=== PATIENT | male | born 1990 | race Caucasian/White ===

== ENCOUNTER → 2018-05-14 12:06 | Outpatient (CLI) | payer MEDICAID, SELFPAY ==
[2018-05-14 12:50] LABS: Absolute Lymphocyte Count 2.13 X10^3/ul (0.83-4.51); Absolute Neutrophil Count 6.7 X10^3/uL (2.0-7.7); Basophil# 0.02 X10^3/uL; Basophil% 0.2 % (0-1); Eosinophil# 0.35 X10^3/uL; Eosinophils% 3.6 % (0-5); Hematocrit 44.3 % (40-54); Hemoglobin 14.5 g/dl (13.0-16.5); Lymphocyte # 2.13 X10^3/ul (4.0); Lymphocyte % 21.8 % (19-41); Mean Corp Hgb Conc 32.7 g/gl (32-36); Mean Corpuscular Hgb 30.5 pg (27.0-32.0); Mean Corpuscular Volume 93.1 fL (80-94); Mean Platelet Vol. 9.9 fl (6.2-12.0); Monocyte# 0.61 X10^3/uL; Monocyte% 6.2 % (0-10); Neutrophil # 6.65 X10^3/uL (2.7-7.7); Neutrophil % 68.1 % (47-70); Platelet Count 306 K/mm3 (150-450); RBC Distribution Width CV 13.4 % (11.6-14.6); RBC Distribution Width SD 45.8 fl (35.1-43.9); Red Blood Count 4.76 M/mm3 (4.6-6.2); White Blood Count 9.8 K/mm3 (4.4-11.0)
[2018-05-14 12:51] LABS: POSITIVE COUNT NO; POSITIVE DIFFERENTIAL NO; POSITIVE MORPHOLOGY NO
[2018-05-14 13:15] LABS: ALB/GLOB Ratio 1.2 RATIO (0.9-2.4); AST(SGOT) 11 U/L (15-37); Alanine Aminotransfer ALT/SGPT 15 U/L (16-61); Albumin, Serum 3.7 g/dL (3.2-5.0); Alkaline Phosphatase 54 U/L (45-117); Anion Gap 8 (5-15); BUN 13 mg/dL (7-18); Calcium,Total 8.6 mg/dL (8.5-10.1); Chloride 110 mmol/L (98-107); Creatinine, Serum 0.72 mg/dL (0.70-1.30); EST Glomerular Filtration Rate 137 mL/min (>60); Est Glom Filt Rate - Afr Amer 166 mL/min (>60); Globulin 3.1 g/dL (2.2-4.2); Glucose 82 mg/dL (74-106); Potassium 4.4 mmol/L (3.5-5.1); Protein, Total 6.8 g/dL (6.4-8.2); Sodium Level 143 mmol/L (136-145)
== END ==
PROVIDERS: Family Provider Internal Medicine; PCP Internal Medicine; Visit Provider Internal Medicine
DX: L20.9 Atopic dermatitis, unspecified (principal)
CPT/HCPCS: 36415; 80053; 85025

== ENCOUNTER 2019-03-09 18:53 | Emergency (ER) | payer BC, SELFPAY ==
[2019-03-09 18:54] VITALS: BP 148/91; PULSE 89; RESP 16; TEMP 36.6; O2SAT 97; BMI 23.6
--- NOTE | 2019-03-09 19:08 | RAD_ITS ---
STUDY: X-RAY - RIGHT WRIST REASON FOR EXAM: Male, 29 years old. Pain TECHNIQUE: 3 view(s) of the wrist were obtained. COMPARISON: None. FINDINGS: There is no evidence of fracture or dislocation. Chronic osseous body noted at the tip of the ulnar styloid. There are no radiodense foreign bodies. RAD/Wrist min 3 Views IMPRESSION: No fracture or dislocation. Electronically Signed: Parth Tristan, at 19:26 EDT Tel , Service support ,
--- NOTE | 2019-03-09 19:45 | ED.VISSUMM ---
- ER Visit Summary Date of Service: 03/09/19 Chief Complaint: Right wrist injury History of Present Illness: The patient is a 29 M with right wrist injury. Patient states that happened yesterday. He states he is moving his wrist and felt something pop in his wrist. He states that since that time, he has had some increasing pain when he moves his wrist. He was concerned because he has a prior fracture in his wrist. He is right-hand dominant. He denies other injury. He is otherwise been in his normal state of health. Physical Examination: Vital signs reviewed General: Well-nourished, well-developed Head: Normocephalic, atraumatic Eyes: Pupils equal and reactive, extraocular muscles intact Neck, supple, no lymphadenopathy Heart: Regular rate and rhythm Respiratory: No distress, clear bilaterally Abdomen: Soft, nontender, nondistended, no peritoneal signs Back: Nontender Extremities: Nontender, no edema, no cords Skin: Normal color no rash Neuro: Alert and oriented, no focal or lateralizing deficits Test Results: [] Emergency Department Course and Treatment: The patient has normal pulses of his upper extremity. There is no gross laxity. My suspicion is that he likely has a ligamentous sprain. X-rays show no evidence of acute fracture. The patient is placed in a wrist splint for comfort. He will be discharged home Treatment Plan: [] Disposition: Discharge Impression: 1. Right wrist sprain This note was generated with [employer]to[employer] dictation software. It may contain incorrect words, spelling, and punctuation that were not noted in review of the chart prior to signing ED Disposition - Plan for ED Patient: Disposition: Home or Assisted Living Instructions: Wrist Sprain Prescriptions: Naproxen [Naprosyn] 500 mg PO BID #14 tab Prescription Printed Referrals: Lakshmi Lama MD [Primary Care Provider] - Rob Palomo MD [STAFF PHYSICIAN] -
== END 2019-03-09 19:51 | disposition home or self-care (01) ==
PROVIDERS: Emergency Provider Emergency Medicine; Family Provider Internal Medicine; PCP Internal Medicine
DX: S63.501A Unspecified sprain of right wrist, initial encounter (principal); X58.XXXA Exposure to other specified factors, initial encounter; Y93.9 Activity, unspecified; Y92.89 Other specified places as the place of occurrence of the external cause; Y99.0 Civilian activity done for income or pay; Z72.0 Tobacco use
CPT/HCPCS: 73110; 99283

== ENCOUNTER → 2021-01-02 10:18 | Outpatient (CLI) | payer BC, SELFPAY ==
[2021-01-02 09:44] VITALS: BMI 22.4
[2021-01-02 12:47] LABS: Absolute Lymphocyte Count 1.41 X10^3/uL (0.83-4.51); Absolute Neutrophil Count 8.9 X10^3/uL (2.0-7.7); Basophil# 0.03 X10^3/uL; Basophil% 0.3 % (0-1); Eosinophil# 0.25 X10^3/uL; Eosinophils% 2.2 % (0-5); Hematocrit 47.3 % (40-54); Hemoglobin 15.8 g/dL (13.0-16.5); Lymphocyte # 1.41 X10^3/ul (0.83-4.51); Lymphocyte % 12.2 % (19-41); Mean Corp Hgb Conc 33.4 g/dL (32-36); Mean Corpuscular Hgb 31.8 pg (27.0-32.0); Mean Corpuscular Volume 95.2 fL (80-94); Mean Platelet Vol. 9.7 fl (6.2-12.0); Monocyte# 0.91 X10^3/uL; Monocyte% 7.9 % (0-10); NRBC Flagged by Analyzer 0 % (0-5); Neutrophil # 8.88 X10^3/uL (2.7-7.7); Platelet Count 350 K/mm3 (150-450); RBC Distribution Width CV 12.1 % (11.6-14.6); RBC Distribution Width SD 42.3 fl (35.1-43.9); Red Blood Count 4.97 M/mm3 (4.6-6.2); White Blood Count 11.5 K/mm3 (4.4-11.0)
[2021-01-02 13:18] LABS: AST(SGOT) 22 U/L (15-37); Alanine Aminotransfer ALT/SGPT 27 U/L (16-61); Albumin, Serum 3.7 g/dL (3.2-5.0); Alkaline Phosphatase 86 U/L (45-117); Anion Gap 6 (5-15); BUN 10 mg/dL (7-18); BUN/Creat Ratio 12.9 RATIO (10-20); Chloride 102 mmol/L (98-107); Cholesterol 176 mg/dL (200); Creatinine, Serum 0.78 mg/dL (0.70-1.30); EST Glomerular Filtration Rate 124 mL/min (>60); Est Glom Filt Rate - Afr Amer 150 mL/min (>60); Globulin 3.6 g/dL (2.2-4.2); Glucose 102 mg/dL (74-106); High Density Lipoprotein 51 mg/dL; Protein, Total 7.3 g/dL (6.4-8.2); Sodium Level 136 mmol/L (136-145); Triglycerides 117 mg/dL; Very Low Density Lipoprotein 23 mg/dL (5-40)
== END ==
PROVIDERS: PCP Internal Medicine; Referring Provider Physician Assistant; Visit Provider Physician Assistant
DX: Z00.00 Encounter for general adult medical examination without abnormal findings (principal)
CPT/HCPCS: 36415; 80053; 80061; 85025

== ENCOUNTER 2021-06-30 18:16 | Emergency (ER) | payer BC, SELFPAY ==
[2021-06-30 18:17] VITALS: BP 141/91; PULSE 113; RESP 18; TEMP 36.1; O2SAT 97; BMI 22.1
[2021-06-30 18:19] VITALS: BP 141/91; PULSE 113; RESP 18; TEMP 36.1; O2SAT 97
--- NOTE | 2021-06-30 18:28 | RAD_ITS ---
STUDY: X-RAY - RIGHT WRIST REASON FOR EXAM: Male, 31 years old. Laceration TECHNIQUE: 3 view(s) of the wrist were obtained. COMPARISON: 23 June 2012 FINDINGS: The bones of the wrist are intact and located. Mineralization is normal. There is gas outlining a linear laceration of the ventral distal forearm. RAD/Wrist min 3 Views IMPRESSION: 1. No acute osseous injury. Electronically Signed: Colin Nathan MD at 19:12 EDT Tel , Service support ,
--- NOTE | 2021-06-30 20:08 | EX.ED.UPPERE ---
HPI History of Present Illness Chief Complaint: Laceration Detail of Chief Complaint: Laceration to right wrist Informant: patient Narrative Narrative: Patient presents to the emergency department complaint of a laceration to his right wrist that he incurred prior to arrival in the emergency department. Patient states that he was trying to move a television and he accidentally put his hand through the glass of the TV stand. Patient is right-hand dominant. He is unsure of his last tetanus. Patient denies this being a self-inflicted wound or any history of depression or suicidal ideation. [facility] Medical History (Updated 06/30/21 @ 20:[address] Eduardo Magaña, DO) Dermatitis Effusion of elbow joint, right Plantar warts Home Medications ketoconazole 2 %-hydrocortisone 2.5 % topical cream 1 applic TOPICAL BID #30 g 05/02/21 [Rx Last Taken Unknown] Depo-Medrol 40 mg/mL suspension for injection 40 mg INTRA-ARTICULAR ONCE #1 ml NS 05/03/21 [Clinic Last Taken Unknown] cephalexin 500 mg PO Q6 #40 capsule 06/30/21 [Rx Last Taken Unknown] Allergy/AdvReac Type Severity Reaction Status Date / Time No Known Allergies Allergy Verified 05/02/21 10:47 Family History Father Alcoholism Mother Cancer cervical Seizures Sister Cancer cervical Thyroid disorder Grandfather Heart disease CVA (cerebral vascular accident) Surgical History History of appendectomy Social History Smoking Status: Current every day smoker tobacco type: cigarettes Tobacco: How many years used: 10 alcohol intake: current alcohol intake frequency: a few times a month substance use type: does not use what type of physical activity do you participate in: none ROS ROS ED Constitutional Constitutional ED: Reports systems reviewed and no addt'l complaints, except as documented; Denies body ache(s), change in weight or chills Eyes Eyes: Denies acute decrease in peripheral vision, change in vision, double vision or loss of vision ENT ENT ED: Reports none; Denies ear pain, lip swelling, loss taste/smell, neck pain, otalgia or sore throat Cardiovascular Cardiovascular: Reports none; Denies abdominal pain, chest pain with activity, leg edema, lightheadedness, palpitations, rapid heart rate or syncope Respiratory/Chest Respiratory/Chest: Reports none; Denies change in mental status, dry cough, dyspnea, hemoptysis, shortness of breath at rest or shortness of breath with exertion Gastrointestinal Gastrointestinal: Reports none; Denies abdominal pain, change in stool character, diarrhea, hematemesis, hematochezia, melena, rectal bleeding or vomiting Genitourinary Genitourinary ED: Reports none; Denies abdominal discomfort, anuria, dysuria, genital pain or polyuria Musculoskeletal Musculoskeletal: Reports none and other Details: Laceration right wrist ; Denies arthralgias, back pain, difficulty walking, extremity pain, muscle weakness or myalgias Integumentary Reports none; Denies abscess or rash Neurologic Neurologic: Reports none; Denies abnormal gait, confusion, focal weakness, frequent falls, headache(s), loss of vision, numbness, paresthesias, radicular pain, vertigo or weakness Psychiatric Psychiatric: Reports systems reviewed and no addt'l complaints, except as documented and none; Denies behavioral changes, confusion, difficulty concentrating, hallucinations, suicidal ideation, tactile hallucinations or visual hallucinations Endocrine Endocrinology: Denies none, cold intolerance, excessive sweating, fatigue or heat intolerance Hematologic/Lymphatic Hematologic/Lymphatic: Reports none; Denies anemia, easy bleeding or easy bruising Allergic/Immunologic Allergic/Immunologic ED: Denies as per HPI, none, lip swelling, mouth swelling, throat swelling, tongue swelling or hives EXAM Physical Exam Const Vital Signs: 06/30/21 18:17 06/30/21 18:19 Temperature 96.9 F L 96.9 F L Temperature Source Temporal Temporal Pulse Rate 113 H 113 H Respiratory Rate 18 18 Blood Pressure 141/91 H 141/91 H Blood Pressure Mean 107 107 Pulse Ox 97 97 Oxygen Delivery Method Room Air Room Air Positive well nourished and well developed General Appearance ED: well developed and NAD HEENT Reports TM's clear and moist mucous membranes normocephalic and atraumatic; Negative for trauma or tenderness Tympanic Membrane ED: Yes TM's clear Eyes PERRL and EOMs intact bilaterally General Eye ED: Negative for pale conjunctiva or scleral icterus Neck no lymphadenopathy, supple and no JVD General: Negative for tenderness Chest Wall inspection of chest normal and palpation of chest normal Chest: Negative for tenderness Resp normal respiratory effort and clear to auscultation bilaterally Effort and Inspection: Negative for respiratory distress or pain with movement Auscultation: Negative for rhonchi, wheezes or diminished lung sounds Cardio regular rate, regular rhythm, S1 normal heart sound, S2 normal heart sound and no murmurs Peripheral Pulses: pulses 2+ throughout GI normal to inspection, nondistended, normoactive bowel sounds, soft to palpation, non-tender, non-distended and no masses Back/Spine no CVA tenderness and no thoracic nor lumbar tenderness Extremity normal to inspection General Extremety ED: Negative for edema General Extremity: Negative for edema Neuro oriented x3, CN's II-XII intact bilaterally, no sensory deficits noted and gait normal Sensorium / Orientation: awake, alert, oriented to person, oriented to place and oriented to time Motor Exam: strength 5/5 throughout and strength abnormal Psych mental status grossly normal Skin no rashes or lesions noted and no wounds Skin Narrative: Patient has a 4.5 cm laceration over the volar aspect of the right wrist from the midportion of the wrist over along the radial aspect. Patient has normal distal pulses of the ulnar artery as well as the radial artery. He has normal range of motion of flexion extension of all his digits. He is neurovascular intact. MDM MDM MDM Narrative Medical decision making narrative: X-rays of the right wrist obtained showed no evidence of foreign body or glass within the wound. Patient advised to follow-up with his primary care physician in 10 days for suture removal. Patient to return if increasing pain, redness, swelling, purulent drainage, or condition worsen anyway. Patient will be started on Keflex. Radiography Diagnostic Testing: Clinical Impression(s) from Imaging Studies Wrist X-Ray 06/30/21 18:28 IMPRESSION: 1. No acute osseous injury. Electronically Signed: Colin Nathan MD at 19:12 EDT Tel , Service support , Procedures Lacerations Wrist laceration: Length: 1.77 in Depth: Sub Q Shape: Linear Prep: Sterile Conditions Laceration repair: Lidocaine and Local Irrigated (ml): 200 Number of Sutures/Karen: 9 Suture Information: Ethilon and Simple Comment: The wound was inspected and was noted that he did not lacerate any tendons I am able to see flexor tendon but appears to be intact through flexion extension of his digits. No arterial bleeding noted. Discharge Plan Triage Chief Complaint: Laceration ED Provider: Eduardo Magaña Dx/Rx/DC Orders Clinical Impression: Laceration of wrist, right Instructions: ED Laceration: All Closures Prescriptions: New cephalexin [cephalexin] 500 MG capsule 500 mg PO Q6 Qty: 40 RF: 0 No Action ketoconazole-hydrocortisone 2-2.5 % cream 1 applic topical BID Qty: 30 RF: 2 methylprednisolone acetate [Depo-Medrol] 40 mg/mL suspension 40 mg intra-articular ONCE Qty: 1 RF: 0 Primary Care Provider: Lakshmi Lama Referrals: Lakshmi Lama MD [Primary Care Provider] - 10 Day for suture removal Disposition Disposition: Home, Self Care
[2021-06-30] MEDS: Cephalexin 250 MG Capsule 500 MG PO (20:18)
[2021-06-30] MEDS: Diphth,Pertuss(Acell),Tet Vac 0.5 ML Vial IM (20:18)
[2021-06-30 20:21] VITALS: RESP 16
[2021-06-30] MEDS: Lidocaine 1% (20 ml mdv) 20 ML Vial 10 ML INFILT (20:21)
== END 2021-06-30 20:36 | disposition home or self-care (01) ==
PROVIDERS: Emergency Provider Emergency Medicine; PCP Internal Medicine
DX: S61.511A Laceration without foreign body of right wrist, initial encounter (principal); W25.XXXA Contact with sharp glass, initial encounter; Y93.89 Activity, other specified; Y92.89 Other specified places as the place of occurrence of the external cause; Y99.8 Other external cause status; F17.210 Nicotine dependence, cigarettes, uncomplicated; Z23 Encounter for immunization
CPT/HCPCS: 12001; 73110; 90471; 90715; 99284

== ENCOUNTER 2021-07-30 05:10 | Emergency (ER) | payer BC, SELFPAY ==
[2021-07-30 05:11] VITALS: BP 153/104; PULSE 76; RESP 18; TEMP 35.8; O2SAT 100; BMI 23.3
--- NOTE | 2021-07-30 05:27 | CT_ITS ---
STUDY: CT ABDOMEN AND PELVIS WITHOUT CONTRAST REASON FOR EXAM: Male, 31 years old. Left flank pain RADIATION DOSAGE (If Supplied By Facility): CTDIvol = ( 6.04 ) mGy, DLP = ( 306.55 ) mGycm TECHNIQUE: Transaxial images were obtained from the dome of the diaphragm to the symphysis pubis without oral contrast, and without intravenous contrast. Sagittal and coronal images were reconstructed. Individualized dose optimization techniques were used for this CT. COMPARISON: 04/12/2017 FINDINGS: The visualized lung bases are unremarkable. The visualized portions of the heart are within normal limits. Normal liver. Normal gallbladder and extrahepatic biliary system. Normal spleen. Normal pancreas. Normal bilateral adrenal glands. Normal right kidney. Normal left kidney. There is a 4 mm left distal ureter calculus with mild ureter wall thickening. No left hydroureteronephrosis. Multiple punctate bilateral renal collecting system calculi. Normal visualized stomach. Normal small intestine. Normal colon. There are surgical clips in the region of the appendix consistent with a prior appendectomy. Normal abdominal aorta. Normal inferior vena cava. Normal retroperitoneum. Normal urinary bladder. Normal visualized prostate gland. Normal abdominal wall. Normal thoracolumbar vertebral alignment. CT/Abdomen/Pelvis without Cont IMPRESSION: Nonobstructive left distal ureter calculus with mild ureter wall thickening. Electronically Signed: Cb Moore MD at 6:26 EST Tel , Service support ,
--- NOTE | 2021-07-30 05:29 | EX.ED.DYSGE1 ---
HPI History of Present Illness Chief Complaint: Flank Pain Narrative Narrative: Patient is a 31-year-old male who states he went to bed last night normally and then awoke around 430/5 AM with left-sided flank pain. He states the pain is sharp and stabbing in nature. He denies any recent trauma or excessive activity. He denies any hematuria or dysuria. He states that with the persistent sharp pain he was concern for a possible kidney stone as the cause of his symptoms and therefore comes in for evaluation [facility] Medical History Dermatitis Effusion of elbow joint, right Plantar warts Medical History no medical history Home Medications ibuprofen 600 mg PO Q6H PRN #30 tab 07/30/21 [Rx Last Taken Unknown] ondansetron 4 mg PO Q8H PRN #21 tab 07/30/21 [Rx Last Taken Unknown] oxycodone-acetaminophen [Percocet] 1 tab PO Q6H PRN 3 Days #12 tab 07/30/21 [Rx Last Taken Unknown] tamsulosin [Flomax] 0.4 mg PO DAILY #14 cap 07/30/21 [Rx Last Taken Unknown] Allergy/AdvReac Type Severity Reaction Status Date / Time No Known Allergies Allergy Verified 07/12/21 08:27 Family History Father Alcoholism Mother Cancer cervical Seizures Sister Cancer cervical Thyroid disorder Grandfather Heart disease CVA (cerebral vascular accident) Surgical History History of appendectomy Social History Smoking Status: Current every day smoker tobacco type: cigarettes Tobacco: How many years used: 10 alcohol intake: current alcohol intake frequency: a few times a month substance use type: does not use what type of physical activity do you participate in: none ROS ROS ED Constitutional Constitutional ED: Denies chills or fever(s) ENT ENT ED: Denies sore throat Cardiovascular Cardiovascular: Denies chest pain Respiratory/Chest Respiratory/Chest: Denies cough or dyspnea Gastrointestinal Gastrointestinal: Reports abdominal pain; Denies diarrhea, nausea or vomiting Genitourinary Genitourinary ED: Denies dysuria or hematuria Musculoskeletal Musculoskeletal: Reports back pain; Denies myalgias Integumentary Denies rash Neurologic Neurologic: Denies headache(s) Hematologic/Lymphatic Hematologic/Lymphatic: Denies easy bleeding or easy bruising EXAM Physical Exam Const Vital Signs: 07/30/21 05:11 Temperature 96.5 F L Temperature Source Oral Pulse Rate 76 Respiratory Rate 18 Blood Pressure 153/104 H Blood Pressure Mean 120 Pulse Ox 100 Oxygen Delivery Method Room Air Positive well nourished and well developed General Appearance ED: well developed Eyes PERRL and EOMs intact bilaterally Neck supple Resp normal respiratory effort and clear to auscultation bilaterally Cardio regular rate and regular rhythm Rate: other Other Details: Radial pulses are +2-4 bilaterally are equal and symmetric GI non-distended GI Narrative: Abdomen is soft and nondistended with normoactive bowel sounds. There is pain with palpation in the left upper and mid abdomen without voluntary guarding or rigidity. No pulsatile mass Auscultation: normoactive bowel sounds Palpation: soft Back/Spine Back/Spine Narrative: Positive left CVA pain Extremity normal to inspection Neuro oriented x3 and CN's II-XII intact bilaterally Sensorium / Orientation: alert Motor Exam: strength 5/5 throughout Psych mental status grossly normal Skin no rashes or lesions noted Skin Narrative: No secondary changes to suggest trauma or infection MDM MDM MDM Narrative Medical decision making narrative: Patient's exam and history is most consistent with kidney stone therefore basic labs and a noncontrast CT were obtained. Labs reveal no leukocytosis or left shift and normal kidney function. After Toradol and morphine as well as IV hydration patient reported improvement of his pain. CT scan did confirm a 4 mm left ureteral stone. However there is no obvious obstructive process and labs go against acute kidney injury. Therefore this time patient's pain is controlled he does not have SHANAE changes and therefore safe for discharge with urology follow-up Lab Data Attestation: I reviewed the patient's lab results. Labs: Laboratory Results - last 24 hr 07/30/21 07/30/21 05:10 05:10 WBC 10.5 RBC 4.99 Hgb 15.8 Hct 47.4 MCV 95.0 H MCH 31.7 MCHC 33.3 RDW Std Deviation 43.4 RDW Coeff of Annalisa 12.4 Plt Count 361 MPV 9.5 Immature Gran % (Auto) 0.400 Neut % (Auto) 60.9 Lymph % (Auto) 25.1 Anderson % (Auto) 9.7 Eos % (Auto) 3.4 Baso % (Auto) 0.5 Absolute Neuts (auto) 6.4 Absolute Lymphs (auto) 2.64 Nucleated RBC % 0 Sodium 138 Potassium 4.1 Chloride 105 Carbon Dioxide 29.0 Anion Gap 4 L BUN 10 Creatinine 0.86 Estim Creat Clear Calc 124.46 Est GFR (MDRD) Af Amer 134 Est GFR (MDRD) Non-Af 111 BUN/Creatinine Ratio 11.7 Glucose 123 H Calcium 8.4 L Radiography Diagnostic Testing: Clinical Impression(s) from Imaging Studies Abdomen/Pelvis CT 07/30/21 05:27 IMPRESSION: Nonobstructive left distal ureter calculus with mild ureter wall thickening. Electronically Signed: Cb Moore MD at 6:26 EST Tel , Service support , Discharge Plan Triage Chief Complaint: Flank Pain ED Provider: Alin Fontenot Dx/Rx/DC Orders Clinical Impression: Kidney stone on left side, Renal colic Instructions: ED Kidney Stone w/ Colic Prescriptions: New tamsulosin [Flomax] 0.4 mg capsule 0.4 mg PO DAILY Qty: 14 RF: 0 ondansetron 4 mg tablet,disintegrating 4 mg PO Q8H PRN (Reason: nausea and vomiting) Qty: 21 RF: 0 ibuprofen 600 mg tablet 600 mg PO Q6H PRN (Reason: pain) Qty: 30 RF: 0 oxycodone-acetaminophen [Percocet] 5-325 mg tablet 1 tab PO Q6H PRN (Reason: pain) 3 Days Qty: 12 RF: 0 Primary Care Provider: Lakshmi Lama Referrals: Lakshmi Lama MD [Primary Care Provider] - Marek Mobley MD [STAFF PHYSICIAN] - 3-5 Days if not improving Activity Restrictions/Additional Instructions: Please return to the hospital/ER if you develop a fever over 100.4 or your pain is not controlled with outpatient medications Disposition Disposition: Home, Self Care
[2021-07-30 05:34] LABS: Absolute Lymphocyte Count 2.64 X10^3/uL (0.83-4.51); Absolute Neutrophil Count 6.4 X10^3/uL (2.0-7.7); Basophil# 0.05 X10^3/uL; Basophil% 0.5 % (0-1); Eosinophil# 0.36 X10^3/uL; Eosinophils% 3.4 % (0-5); Hematocrit 47.4 % (40-54); Hemoglobin 15.8 g/dL (13.0-16.5); Lymphocyte # 2.64 X10^3/ul (0.83-4.51); Lymphocyte % 25.1 % (19-41); Mean Corp Hgb Conc 33.3 g/dL (32-36); Mean Corpuscular Hgb 31.7 pg (27.0-32.0); Mean Platelet Vol. 9.5 fl (6.2-12.0); Monocyte# 1.02 X10^3/uL; Monocyte% 9.7 % (0-10); NRBC Flagged by Analyzer 0 % (0-5); Neutrophil # 6.42 X10^3/uL (2.7-7.7); Neutrophil % 60.9 % (47-70); Platelet Count 361 K/mm3 (150-450); RBC Distribution Width CV 12.4 % (11.6-14.6); RBC Distribution Width SD 43.4 fl (35.1-43.9); Red Blood Count 4.99 M/mm3 (4.6-6.2); White Blood Count 10.5 K/mm3 (4.4-11.0)
[2021-07-30] MEDS: 0.9% Normal Saline 1,000 ML 999 ML IV (05:35)
[2021-07-30] MEDS: Ketorolac 30 MG/ML Syringe IV (05:36)
[2021-07-30 05:47] LABS: Anion Gap 4 (5-15); BUN 10 mg/dL (7-18); BUN/Creat Ratio 11.7 RATIO (10-20); Calcium,Total 8.4 mg/dL (8.5-10.1); Chloride 105 mmol/L (98-107); Creatinine, Serum 0.86 mg/dL (0.70-1.30); EST Glomerular Filtration Rate 111 mL/min (>60); Est Glom Filt Rate - Afr Amer 134 mL/min (>60); Estimated Creatinine Clearance 124.46 ml/min; Glucose 123 mg/dL (74-106); Potassium 4.1 mmol/L (3.5-5.1); Sodium Level 138 mmol/L (136-145)
[2021-07-30] MEDS: Morphine 4 MG/ML Syringe IV (06:23)
[2021-07-30] MEDS: Ondansetron 4 MG/2 ML Vial IV (06:23)
[2021-07-30] MEDS: oxyCODONE 5 MG Tablet 10 MG PO (06:47)
[2021-07-30 06:51] VITALS: RESP 16
== END 2021-07-30 06:51 | disposition home or self-care (01) ==
PROVIDERS: Emergency Provider Emergency Medicine; PCP Internal Medicine
DX: N20.2 Calculus of kidney with calculus of ureter (principal); F17.210 Nicotine dependence, cigarettes, uncomplicated
CPT/HCPCS: 74176; 80048; 85025; 96361; 96374; 96375; 99283; J7030; A4216; J2405

== ENCOUNTER 2021-08-07 08:38 | Emergency (ER) | payer BC, SELFPAY ==
[2021-08-07 08:38] VITALS: BP 160/113; PULSE 96; RESP 19; TEMP 36.4; O2SAT 100; BMI 22.7
--- NOTE | 2021-08-07 09:03 | EDS_ITS ---
HPI HPI - GI History of Present Illness Chief Complaint: Flank Pain Informant: patient Abdominal Pain/Flank Pain Onset: Today Context: Sudden Onset Timing: Continuous and Waxes and wanes Quality: Aching Location: Left Flank Current Severity: Severe Maximum Severity: Severe Worsened by: Nothing Relieved by: Nothing Nausea/Vomiting/Emesis GI Symptom: Positive for Nausea and Vomiting Quality: Positive for Nonbilious; Negative for Blood streaks Diarrhea/Melena/Hematochezia GI Symptom: Negative for Diarrhea, Melena and Hematochezia Associated Symptoms Associated Symptoms: Positive for Urgency; Negative for Dysuria, Frequency and Hematuria Narrative Narrative: Patient presenting with acute onset about an hour ago of left flank pain similar to when he was seen here last week for similar symptoms and diagnosed with a kidney stone via CT. He did not pass anything that he knows of yet. He has never required any surgeries. Healthy otherwise was feeling fine prior to the onset of pain today, no recent injuries. Feels like he needs to urinate, and feels like it is difficult to get it out but he is urinating without hematuria. Prior similar symptoms: Yes PFSH PFSH Medical History Dermatitis Effusion of elbow joint, right Plantar warts Home Medications ibuprofen 600 mg PO Q6H PRN #30 tab 07/30/21 [Rx Last Taken Unknown] ondansetron 4 mg PO Q8H PRN #21 tab 07/30/21 [Rx Last Taken Unknown] oxycodone-acetaminophen [Percocet] 1 tab PO Q6H PRN 3 Days #12 tab 07/30/21 [Rx Last Taken Unknown] tamsulosin [Flomax] 0.4 mg PO DAILY #14 cap 07/30/21 [Rx Last Taken Unknown] oxycodone-acetaminophen 1 tab PO Q6H PRN PRN 3 Days #12 tablet 08/07/21 [Rx Last Taken Unknown] Allergy/AdvReac Type Severity Reaction Status Date / Time No Known Allergies Allergy Verified 08/07/21 08:40 Family History Father Alcoholism Mother Cancer cervical Seizures Sister Cancer cervical Thyroid disorder Grandfather Heart disease CVA (cerebral vascular accident) Surgical History History of appendectomy Social History Smoking Status: Current every day smoker tobacco type: cigarettes Tobacco: How many years used: 10 alcohol intake: current alcohol intake frequency: a few times a month substance use type: does not use what type of physical activity do you participate in: none ROS ROS ED Constitutional Constitutional ED: Denies chills or fever(s) Eyes Eyes: Denies change in vision or diplopia ENT ENT ED: Denies rhinorrhea or sore throat Cardiovascular Cardiovascular: Denies chest pain or palpitations Respiratory/Chest Respiratory/Chest: Denies cough or dyspnea Gastrointestinal Gastrointestinal: Reports as per HPI, abdominal pain, nausea and vomiting; Denies diarrhea Genitourinary Genitourinary ED: Reports as per HPI and flank pain; Denies dysuria or hematuria Musculoskeletal Musculoskeletal: Reports back pain; Denies neck pain Integumentary Denies abscess or rash Neurologic Neurologic: Denies headache(s), paresthesias or weakness Psychiatric Psychiatric: Denies anxiety or suicidal thoughts EXAM Physical Exam Const Vital Signs: 08/07/21 08:38 Temperature 97.5 F L Temperature Source Temporal Pulse Rate 96 Respiratory Rate 19 H Blood Pressure 160/113 H Blood Pressure Mean 128 Pulse Ox 100 Oxygen Delivery Method Room Air Positive well nourished and well developed Constitutional Narrative: Uncomfortable in painful distress General Appearance ED: well developed HEENT Reports moist mucous membranes normocephalic and atraumatic Eyes PERRL and EOMs intact bilaterally Neck full ROM and supple Resp normal respiratory effort and clear to auscultation bilaterally Cardio regular rate, regular rhythm and no murmurs GI non-distended GI Narrative: Mildly tender left upper quadrant/flank Auscultation: normoactive bowel sounds Palpation: soft Back/Spine General Back: CVA tenderness left and other FROM Extremity normal to inspection General Extremety ED: Negative for edema, pulses abnormal or tenderness General Extremity: Negative for edema or pulses abnormal Neuro oriented x3, CN's II-XII intact bilaterally and no sensory deficits noted Sensorium / Orientation: awake and alert Motor Exam: strength 5/5 throughout Skin no rashes or lesions noted and no wounds MDM MDM MDM Narrative Medical decision making narrative: Urinalysis does not show infection. His symptoms are well controlled after morphine, Toradol, Zofran all given IV. His CT scan from this past week shows proximal ureteral 4 mm stone that was nonobstructing at the time, that is probably the offending stone here, expectant management is indicated discussed with patient he is comfortable with that plan. We will give him a short prescription for some Percocet since those are gone from last week, he is advised he can still take ibuprofen and Zofran with it in addition to the Flomax if he wishes, unknown if this is a UVJ stone or not, but not likely to harm him. Refer to urology if he goes 4 or 5 weeks without being able to pass the stone. Given strainers to use at home in the meantime. Lab Data Attestation: I reviewed the patient's lab results. Labs: Laboratory Results - last 24 hr 08/07/21 10:02 Urine Color Yellow Urine Clarity Sl. Cloudy Urine pH 6.0 Ur Specific [place] 1.015 Urine Protein 15 H Urine Glucose (UA) Normal Urine Ketones 5 H Urine Occult Blood 150 H Urine Nitrite Negative Urine Bilirubin Negative Urine Urobilinogen Normal Ur Leukocyte Esterase 25 H Urine RBC 5-10 SEEN Urine WBC 0-5 SEEN Ur Squamous Epith Cells 0-5 SEEN Urine Bacteria RARE Urine Mucus 0 SEEN Discharge Plan Triage Chief Complaint: Flank Pain ED Provider: Shukri Wood Dx/Rx/DC Orders Clinical Impression: Renal colic on left side, Ureterolithiasis Instructions: ED Kidney Stone w/ Colic Prescriptions: New oxycodone-acetaminophen [oxycodone-acetaminophen] 1 TABLET tablet 1 tab PO Q6H PRN PRN (Reason: Pain) 3 Days Qty: 12 RF: 0 No Action tamsulosin [Flomax] 0.4 mg capsule 0.4 mg PO DAILY Qty: 14 RF: 0 ondansetron 4 mg tablet,disintegrating 4 mg PO Q8H PRN (Reason: nausea and vomiting) Qty: 21 RF: 0 ibuprofen 600 mg tablet 600 mg PO Q6H PRN (Reason: pain) Qty: 30 RF: 0 oxycodone-acetaminophen [Percocet] 5-325 mg tablet 1 tab PO Q6H PRN (Reason: pain) 3 Days Qty: 12 RF: 0 Primary Care Provider: Lakshmi Lama Referrals: Lakshmi Lama MD [Primary Care Provider] - Marek Mobley MD [STAFF PHYSICIAN] - (4-5 weeks if unable to pass the stone by then and still having pain) Disposition Disposition: Home, Self Care
[2021-08-07] MEDS: Ketorolac 30 MG/ML Syringe IV (09:15)
[2021-08-07] MEDS: Morphine 4 MG/ML Syringe IV (09:15)
[2021-08-07] MEDS: Ondansetron 4 MG/2 ML Vial IV (09:15)
[2021-08-07 10:21] LABS: Mucous, Urine 0 SEEN /hpf (<or=2+)
[2021-08-07 10:29] LABS: Color, Urine Yellow (Yellow); Glucose, Dipstick Normal (Normal); Ketone-Dipstick 5 mg/dl (Negative); Leukocyte Esterase-Dipstick 25 /ul (Negative); Nitrite-Dipstick Negative (Negative); Occult Blood-Urine 150 /ul (Negative); Protein-Dipstick 15 mg/dl (Negative); Specific Gravity, Urine 1.015 (1.002-1.030); Urine Bilirubin Dipstick Negative (Negative); Urine Clarity Sl. Cloudy (Clear); Urine Urobilinogen Normal (Normal)
[2021-08-07 10:35] LABS: Bacteria RARE /hpf (None Seen); Red Blood Cells-Urine 5-10 SEEN /hpf (0-5); Squamous Epithelial Cells - UA 0-5 SEEN /hpf (0-5); White Blood Cells 0-5 SEEN /hpf (0-5)
[2021-08-07 11:02] VITALS: BP 127/86; PULSE 89; RESP 16; O2SAT 97
== END 2021-08-07 11:07 | disposition home or self-care (01) ==
PROVIDERS: Emergency Provider Emergency Medicine; PCP Internal Medicine
DX: N20.1 Calculus of ureter (principal); F17.210 Nicotine dependence, cigarettes, uncomplicated; Z87.442 Personal history of urinary calculi
CPT/HCPCS: 81001; 96374; 96375; 99283; A4216; J2405

== ENCOUNTER 2021-08-30 18:33 | Emergency (ER) | payer BC, SELFPAY ==
[2021-08-30 18:34] VITALS: BP 147/108; PULSE 98; RESP 17; TEMP 35.6; O2SAT 98; BMI 22.6
--- NOTE | 2021-08-30 18:42 | CT_ITS ---
STUDY: CT Abdomen And Pelvis W/O Contrast Injection 08/30/2021 7:37 PM REASON FOR EXAM: Male, 31 years old. Left flank PAIN Kidney Stone TECHNIQUE: Transaxial images were obtained without oral contrast, and without intravenous contrast. Individualized dose optimization techniques were used for this CT. COMPARISON: 09/29/2020 FINDINGS: The visualized lung bases are unremarkable. The visualized portions of the heart are within normal limits. Normal liver. Normal gallbladder and extrahepatic biliary system. Normal spleen. Normal pancreas. Normal bilateral adrenal glands. Non obstructive 1 to 2 mm right renal parenchymal stones. Non obstructive 1 to 2 mm left renal parenchymal stones. Mild hydronephrosis caused by 3.4mm distal left ureteral stone. Se2 IM: 145. There is hydroureter on the left. Normal visualized stomach. Normal small intestine. Stool throughout the colon. There are surgical clips in the region of the appendix consistent with a prior appendectomy. There are no acute findings of the abdominal aorta. Normal inferior vena cava. Subcentimeter mesenteric lymph nodes. Normal urinary bladder. There is an umbilical hernia containing fat. Normal osseous structures. IMPRESSION: (NOT LISTED IN ORDER OF SIGNIFICANCE) Mild hydronephrosis caused by 3.4mm distal left ureteral stone. There is hydroureter on the left. Other findings as above. Electronically Signed: Wero Cosby MD at 19:41 EST , Service support , CT/Abdomen/Pelvis without Cont
--- NOTE | 2021-08-30 19:01 | EDS_ITS ---
HPI History of Present Illness Chief Complaint: Flank Pain Narrative Narrative: 31-year-old male with history of left-sided kidney stone which he states is 4 cm presenting with left flank pain. Apparently he was previously diagnosed with this and states that he was supposed to follow-up with Dr. Mobley weeks ago but missed his appointment because he had to finish his truck. Patient states he had no history of kidney stone prior to this. He is not had fever or chills. He does experience nausea, vomiting, diaphoresis with the pain. [facility] Medical History Dermatitis Effusion of elbow joint, right Plantar warts Home Medications ibuprofen 600 mg PO Q6H PRN #30 tab 07/30/21 [Rx Last Taken Unknown] oxycodone-acetaminophen 1 tab PO Q6H PRN PRN 3 Days #12 tablet 08/07/21 [Rx Last Taken Unknown] ondansetron 4 mg PO Q8H PRN #21 tab 08/30/21 [Rx Last Taken Unknown] oxycodone-acetaminophen [Percocet] 1 tab PO Q6H PRN 3 Days #12 tab 08/30/21 [Rx Last Taken Unknown] tamsulosin [Flomax] 0.4 mg PO DAILY PRN 3 Days #14 cap MDD N23 08/30/21 [Rx Last Taken Unknown] Allergy/AdvReac Type Severity Reaction Status Date / Time No Known Allergies Allergy Verified 08/30/21 18:33 Family History Father Alcoholism Mother Cancer cervical Seizures Sister Cancer cervical Thyroid disorder Grandfather Heart disease CVA (cerebral vascular accident) Surgical History History of appendectomy Social History Smoking Status: Current every day smoker tobacco type: cigarettes Tobacco: How many years used: 10 alcohol intake: current alcohol intake frequency: a few times a month substance use type: does not use what type of physical activity do you participate in: none ROS ROS ED Constitutional Constitutional ED: Reports sweats; Denies chills or fever(s) Eyes Eyes: Denies blurry vision or change in vision ENT ENT ED: Denies rhinorrhea or sore throat Cardiovascular Cardiovascular: Denies chest pain or palpitations Respiratory/Chest Respiratory/Chest: Denies cough, dyspnea or sputum Gastrointestinal Gastrointestinal: Reports nausea and vomiting; Denies constipation or diarrhea Genitourinary Genitourinary ED: Denies dysuria Musculoskeletal Musculoskeletal: Reports back pain and other Details: Left flank pain Integumentary Denies rash Neurologic Neurologic: Denies headache(s) or paresthesias EXAM Physical Exam Const Vital Signs: 08/30/21 18:34 08/30/21 20:31 Temperature 96.0 F L Temperature Source Temporal Pulse Rate 98 Respiratory Rate 17 Blood Pressure 147/108 H 140/101 H Blood Pressure Mean 121 Pulse Ox 98 Oxygen Delivery Method Room Air Positive well nourished General Appearance ED: NAD; Negative for pallor HEENT Reports moist mucous membranes normocephalic and atraumatic Eyes PERRL and EOMs intact bilaterally Resp normal respiratory effort and clear to auscultation bilaterally Cardio regular rate and regular rhythm Back/Spine General Back: CVA tenderness left Psych mental status grossly normal Thought Process: normal thought process Skin General Skin Exam: Negative for pallor MDM MDM MDM Narrative Medical decision making narrative: 31-year-old male presenting with left flank pain. Is a history of kidney stone on the side. He states he does not past. He was lost to follow-up with urology because he states he had to work on his truck. Patient has not had any fever or chills. He does have nausea and vomiting as well as flank pain. I did obtain blood work and his CBC and BMP are normal. Urinalysis negative for infection but does have occult blood. CT of the abdomen pelvis without contrast is performed and shows a 3.4 mm distal ureteral stone. This is likely the same stone that he had in the past on the left. Patient seems to be improved with morphine, Zofran, Toradol. He is given one oxycodone prior to departure. He will be given follow-up with Dr. Mobley once again. He states he will make follow-up this time. He is discharged home with Percocet, Zofran, Flomax. He is given return precautions. Impression: 1. Left-sided ureteral stone 3.4 mm 2. Hematuria Lab Data Attestation: I reviewed the patient's lab results. Labs: Laboratory Results - last 24 hr 08/30/21 08/30/21 08/30/21 18:50 18:50 18:55 WBC 9.2 RBC 4.94 Hgb 15.7 Hct 44.8 MCV 90.7 MCH 31.8 MCHC 35.0 RDW Std Deviation 39.4 RDW Coeff of Annalisa 11.8 Plt Count 397 MPV 9.2 Immature Gran % (Auto) 0.500 Neut % (Auto) 58.9 Lymph % (Auto) 28.1 [place] % (Auto) 8.4 Eos % (Auto) 3.6 Baso % (Auto) 0.5 Absolute Neuts (auto) 5.4 Absolute Lymphs (auto) 2.58 Nucleated RBC % 0 Sodium 140 Potassium 3.6 Chloride 107 Carbon Dioxide 26.0 Anion Gap 7 BUN 14 Creatinine 1.04 Estim Creat Clear Calc 101.46 Est GFR (MDRD) Af Amer 107 Est GFR (MDRD) Non-Af 88 BUN/Creatinine Ratio 13.5 Glucose 101 Calcium 9.1 Urine Color Yellow Urine Clarity Cloudy Urine pH 6.0 Ur Specific [place] 1.025 Urine Protein 30 H Urine Glucose (UA) Normal Urine Ketones 5 H Urine Occult Blood 250 H Urine Nitrite Negative Urine Bilirubin 1 H Urine Urobilinogen 4 H Ur Leukocyte Esterase 25 H Urine RBC > 100 SEEN Urine WBC 0-5 SEEN Ur Squamous Epith Cells 0 SEEN Urine Bacteria 0 SEEN Urine Mucus 3+ Radiography Diagnostic Testing: Clinical Impression(s) from Imaging Studies Abdomen/Pelvis CT 08/30/21 18:42 Discharge Plan Triage Chief Complaint: Flank Pain ED Provider: Guido Rick Dx/Rx/DC Orders Instructions: ED Kidney Stone w/ Colic Prescriptions: Continued oxycodone-acetaminophen [Percocet] 5-325 mg tablet 1 tab PO Q6H PRN (Reason: pain) 3 Days Qty: 12 RF: 0 ondansetron 4 mg tablet,disintegrating 4 mg PO Q8H PRN (Reason: nausea and vomiting) Qty: 21 RF: 0 Changed tamsulosin [Flomax] 0.4 mg capsule 0.4 mg PO DAILY MDD N23 PRN (Reason: pain) 3 Days Qty: 14 RF: 0 No Action ibuprofen 600 mg tablet 600 mg PO Q6H PRN (Reason: pain) Qty: 30 RF: 0 oxycodone-acetaminophen [oxycodone-acetaminophen] 1 TABLET tablet 1 tab PO Q6H PRN PRN (Reason: Pain) 3 Days Qty: 12 RF: 0 Primary Care Provider: Lakshmi Lama Referrals: Lakshmi Lama MD [Primary Care Provider] - Marek Mobley MD [STAFF PHYSICIAN] - As soon as possible Disposition Disposition: Home, Self Care Discharge Date/Time: 08/30/21 20:36
[2021-08-30] MEDS: Ondansetron 4 MG/2 ML Vial IV (19:07)
[2021-08-30] MEDS: Ketorolac 15 MG/ML Vial IV (19:07)
[2021-08-30 19:09] LABS: Bacteria 0 SEEN /hpf (None Seen); Squamous Epithelial Cells - UA 0 SEEN /hpf (0-5)
[2021-08-30] MEDS: Morphine 4 MG/ML Syringe IV (19:09)
[2021-08-30 19:10] LABS: Color, Urine Yellow (Yellow); Glucose, Dipstick Normal (Normal); Ketone-Dipstick 5 mg/dl (Negative); Leukocyte Esterase-Dipstick 25 /ul (Negative); Nitrite-Dipstick Negative (Negative); Occult Blood-Urine 250 /ul (Negative); Protein-Dipstick 30 mg/dl (Negative); Specific Gravity, Urine 1.025 (1.002-1.030); Urine Bilirubin Dipstick 1 mg/dL (Negative); Urine Clarity Cloudy (Clear); Urine Urobilinogen 4 mg/dl (Normal)
[2021-08-30 19:14] LABS: Absolute Lymphocyte Count 2.58 X10^3/uL (0.83-4.51); Absolute Neutrophil Count 5.4 X10^3/uL (2.0-7.7); Basophil# 0.05 X10^3/uL; Basophil% 0.5 % (0-1); Eosinophil# 0.33 X10^3/uL; Eosinophils% 3.6 % (0-5); Hematocrit 44.8 % (40-54); Hemoglobin 15.7 g/dL (13.0-16.5); Lymphocyte # 2.58 X10^3/ul (0.83-4.51); Lymphocyte % 28.1 % (19-41); Mean Corpuscular Hgb 31.8 pg (27.0-32.0); Mean Corpuscular Volume 90.7 fL (80-94); Mean Platelet Vol. 9.2 fl (6.2-12.0); Monocyte# 0.77 X10^3/uL; Monocyte% 8.4 % (0-10); NRBC Flagged by Analyzer 0 % (0-5); Neutrophil # 5.39 X10^3/uL (2.7-7.7); Neutrophil % 58.9 % (47-70); Platelet Count 397 K/mm3 (150-450); RBC Distribution Width CV 11.8 % (11.6-14.6); RBC Distribution Width SD 39.4 fl (35.1-43.9); Red Blood Count 4.94 M/mm3 (4.6-6.2); White Blood Count 9.2 K/mm3 (4.4-11.0)
[2021-08-30 19:21] LABS: Mucous, Urine 3+ /hpf (<or=2+); Red Blood Cells-Urine > 100 SEEN /hpf (0-5); White Blood Cells 0-5 SEEN /hpf (0-5)
[2021-08-30 19:27] LABS: Anion Gap 7 (5-15); BUN 14 mg/dL (7-18); BUN/Creat Ratio 13.5 RATIO (10-20); Calcium,Total 9.1 mg/dL (8.5-10.1); Chloride 107 mmol/L (98-107); Creatinine, Serum 1.04 mg/dL (0.70-1.30); EST Glomerular Filtration Rate 88 mL/min (>60); Est Glom Filt Rate - Afr Amer 107 mL/min (>60); Estimated Creatinine Clearance 101.46 ml/min; Glucose 101 mg/dL (74-106); Potassium 3.6 mmol/L (3.5-5.1); Sodium Level 140 mmol/L (136-145)
[2021-08-30] MEDS: oxyCODONE 5 MG Tablet PO (20:26)
[2021-08-30 20:31] VITALS: BP 140/101
== END 2021-08-30 20:36 | disposition home or self-care (01) ==
PROVIDERS: Emergency Provider Student in an Organized Health Care Education/Training Program; PCP Internal Medicine
DX: N13.2 Hydronephrosis with renal and ureteral calculous obstruction (principal); F17.210 Nicotine dependence, cigarettes, uncomplicated; Z87.442 Personal history of urinary calculi
CPT/HCPCS: 74176; 80048; 81001; 85025; 99284; A4216; J2405

== ENCOUNTER 2021-09-18 12:10 | Outpatient (CLI) | payer BC, SELFPAY | END 2021-09-18 23:59 | disposition home or self-care (01) | LOC: PSN 12:12 | PROVIDERS: PCP Internal Medicine; Referring Provider Urology; Visit Provider Urology | DX: Z03.818 Encounter for observation for suspected exposure to other biological agents ruled out (principal) | CPT/HCPCS: 87635; C9803; U0003; U0005 ==

== ENCOUNTER 2021-09-20 07:06 | Emergency (ER) | payer BC, SELFPAY ==
[2021-09-20 07:06] VITALS: BP 139/96; PULSE 115; RESP 20; TEMP 36.6; O2SAT 100; BMI 22.1
[2021-09-20 07:14] VITALS: BP 139/96; PULSE 115; RESP 18; TEMP 36.6; O2SAT 100
--- NOTE | 2021-09-20 07:16 | EDS_ITS ---
HPI History of Present Illness Chief Complaint: Flank Pain Detail of Chief Complaint: Left flank pain that started approximately 3 months ago Informant: patient Onset/Context/Timing Current Severity: 04/25 Narrative Narrative: Patient presents to the emergency department stating that he has a kidney stone that he supposed to have extracted in 2 days. Patient states he has been having pain off and on for the last 3 months. Patient states that he has a stone that is stuck in the urologist will have to removed. Patient has had nausea and did vomit once prior to arrival in the emergency department. Patient denies fevers. He denies real dysuria. Patient ran out of his Percocet that he was prescribed from last visit in the department and ibuprofen is not managing his pain. Prior similar symptoms: Yes PFSH PFSH Medical History Dermatitis Effusion of elbow joint, right Plantar warts Home Medications tamsulosin [Flomax] 0.4 mg PO DAILY PRN 3 Days #14 cap MDD N23 08/30/21 [Rx Last Taken Unknown] oxycodone-acetaminophen 1 tab PO Q6H PRN PRN 3 Days #12 tablet 09/20/21 [Rx Last Taken Unknown] Allergy/AdvReac Type Severity Reaction Status Date / Time No Known Allergies Allergy Verified 09/20/21 07:08 Family History Father Alcoholism Mother Cancer cervical Seizures Sister Cancer cervical Thyroid disorder Grandfather Heart disease CVA (cerebral vascular accident) Surgical History History of appendectomy Social History Smoking Status: Current every day smoker tobacco type: cigarettes Tobacco: How many years used: 10 alcohol intake: current alcohol intake frequency: a few times a month substance use type: does not use what type of physical activity do you participate in: none ROS ROS ED Constitutional Constitutional ED: Reports systems reviewed and no addt'l complaints, except as documented; Denies body ache(s), change in weight or chills Eyes Eyes: Denies acute decrease in peripheral vision, change in vision, double vision or loss of vision ENT ENT ED: Reports none; Denies ear pain, lip swelling, loss taste/smell, neck pain, otalgia or sore throat Cardiovascular Cardiovascular: Reports none; Denies abdominal pain, chest pain with activity, leg edema, lightheadedness, palpitations, rapid heart rate or syncope Respiratory/Chest Respiratory/Chest: Reports none; Denies change in mental status, dry cough, dyspnea, hemoptysis, shortness of breath at rest or shortness of breath with exertion Gastrointestinal Gastrointestinal: Reports none; Denies abdominal pain, change in stool character, diarrhea, hematemesis, hematochezia, melena, rectal bleeding or vomiting Genitourinary Genitourinary ED: Reports none; Denies abdominal discomfort, anuria, dysuria, genital pain or polyuria Musculoskeletal Musculoskeletal: Reports none and back pain; Denies arthralgias, difficulty walking, extremity pain, muscle weakness or myalgias Integumentary Reports none; Denies abscess or rash Neurologic Neurologic: Reports none; Denies abnormal gait, confusion, focal weakness, frequent falls, headache(s), loss of vision, numbness, paresthesias, radicular pain, vertigo or weakness Psychiatric Psychiatric: Reports systems reviewed and no addt'l complaints, except as documented and none; Denies behavioral changes, confusion, difficulty concentrating, hallucinations, suicidal ideation, tactile hallucinations or visual hallucinations Endocrine Endocrinology: Denies none, cold intolerance, excessive sweating, fatigue or heat intolerance Hematologic/Lymphatic Hematologic/Lymphatic: Reports none; Denies anemia, easy bleeding or easy bruising Allergic/Immunologic Allergic/Immunologic ED: Denies as per HPI, none, lip swelling, mouth swelling, throat swelling, tongue swelling or hives EXAM Physical Exam Const Vital Signs: 09/20/21 07:06 09/20/21 07:14 Temperature 97.9 F 97.9 F Temperature Source Temporal Temporal Pulse Rate 115 H 115 H Respiratory Rate 20 H 18 Blood Pressure 139/96 H 139/96 H Blood Pressure Mean 110 110 Pulse Ox 100 100 Oxygen Delivery Method Room Air Room Air Positive well nourished and well developed General Appearance ED: well developed and NAD HEENT Reports TM's clear and moist mucous membranes normocephalic and atraumatic; Negative for trauma or tenderness Tympanic Membrane ED: Yes TM's clear Eyes PERRL and EOMs intact bilaterally General Eye ED: Negative for pale conjunctiva or scleral icterus Neck no lymphadenopathy, supple and no JVD General: Negative for tenderness Chest Wall inspection of chest normal and palpation of chest normal Chest: Negative for tenderness Resp normal respiratory effort and clear to auscultation bilaterally Effort and Inspection: Negative for respiratory distress or pain with movement Auscultation: Negative for rhonchi, wheezes or diminished lung sounds Cardio regular rate, regular rhythm, S1 normal heart sound, S2 normal heart sound and no murmurs Peripheral Pulses: pulses 2+ throughout GI normal to inspection, nondistended, normoactive bowel sounds, soft to palpation, non-distended and no masses GI Narrative: Mild tenderness palpation over left lower quadrant with some mild guarding. There is no rebound, rigidity, or peritoneal signs. Back/Spine no thoracic nor lumbar tenderness Back/Spine Narrative: Left CVA tenderness on exam Extremity normal to inspection General Extremety ED: Negative for edema General Extremity: Negative for edema Neuro oriented x3, CN's II-XII intact bilaterally, no sensory deficits noted and gait normal Sensorium / Orientation: awake, alert, oriented to person, oriented to place and oriented to time Motor Exam: strength 5/5 throughout and strength abnormal Psych mental status grossly normal Skin no rashes or lesions noted and no wounds MDM MDM MDM Narrative Medical decision making narrative: IV line established on arrival. Patient was medicated with morphine, Zofran, and Toradol. He had good pain relief with that. His lab work-up was essentially unremarkable other than a slightly elevated white count 13.7 which I suspect may be reactive secondary to retching and vomiting. His urinalysis was unremarkable. Kidney function unremarkable. I attempted to contact his urologist at this point unsuccessfully. Patient is comfortable going home with a prescription for Percocet and keeping his appointment to have the stone extracted in 2 days. Patient advised to return if worsening pain, fever, persistent vomiting, or condition should worsen anyway. Lab Data Attestation: I reviewed the patient's lab results. Labs: Laboratory Results - last 24 hr 09/20/21 09/20/21 09/20/21 07:18 07:18 07:23 WBC 13.7 H RBC 4.87 Hgb 15.2 Hct 44.9 MCV 92.2 MCH 31.2 MCHC 33.9 RDW Std Deviation 41.1 RDW Coeff of Annalisa 12.0 Plt Count 379 MPV 9.1 Immature Gran % (Auto) 0.300 Neut % (Auto) 74.3 H Lymph % (Auto) 14.8 L [place] % (Auto) 7.1 Eos % (Auto) 3.1 Baso % (Auto) 0.4 Absolute Neuts (auto) 10.1 H Absolute Lymphs (auto) 2.02 Nucleated RBC % 0 Sodium 144 Potassium 3.7 Chloride 109 H Carbon Dioxide 28.0 Anion Gap 7 BUN 10 Creatinine 0.96 Estim Creat Clear Calc 107.30 Est GFR (MDRD) Af Amer 117 Est GFR (MDRD) Non-Af 97 BUN/Creatinine Ratio 10.4 Glucose 103 Calcium 8.7 Urine Color Yellow Urine Clarity Clear Urine pH 6.0 Ur Specific [place] 1.020 Urine Protein 30 H Urine Glucose (UA) Normal Urine Ketones Negative Urine Occult Blood 250 H Urine Nitrite Negative Urine Bilirubin Negative Urine Urobilinogen 1 H Ur Leukocyte Esterase 25 H Urine RBC 5-10 SEEN Urine WBC 0-5 SEEN Ur Squamous Epith Cells 0-5 SEEN Urine Bacteria 0 SEEN Urine Mucus 0 SEEN Discharge Plan Triage Chief Complaint: Flank Pain ED Provider: Eduardo Magaña Dx/Rx/DC Orders Clinical Impression: Kidney stone Instructions: ED Kidney Stone w/ Colic Prescriptions: New oxycodone-acetaminophen [oxycodone-acetaminophen] 1 TABLET tablet 1 tab PO Q6H PRN PRN (Reason: Pain) 3 Days Qty: 12 RF: 0 No Action tamsulosin [Flomax] 0.4 mg capsule 0.4 mg PO DAILY MDD N23 PRN (Reason: pain) 3 Days Qty: 14 RF: 0 Primary Care Provider: Lakshmi Lama Referrals: Lakshmi Lama MD [Primary Care Provider] - Marek Mobley MD [STAFF PHYSICIAN] - 2 Days Disposition Disposition: Home, Self Care
[2021-09-20] MEDS: Ondansetron 4 MG/2 ML Vial IV (07:24)
[2021-09-20] MEDS: Morphine 4 MG/ML Syringe IV (07:24)
[2021-09-20] MEDS: 0.9% Normal Saline 1,000 ML 125 ML IV (07:25)
[2021-09-20] MEDS: Ketorolac 30 MG/ML Syringe IV (07:25)
[2021-09-20 07:27] LABS: Absolute Lymphocyte Count 2.02 X10^3/uL (0.83-4.51); Absolute Neutrophil Count 10.1 X10^3/uL (2.0-7.7); Basophil# 0.06 X10^3/uL; Basophil% 0.4 % (0-1); Eosinophil# 0.42 X10^3/uL; Eosinophils% 3.1 % (0-5); Hematocrit 44.9 % (40-54); Hemoglobin 15.2 g/dL (13.0-16.5); Lymphocyte # 2.02 X10^3/ul (0.83-4.51); Lymphocyte % 14.8 % (19-41); Mean Corp Hgb Conc 33.9 g/dL (32-36); Mean Corpuscular Hgb 31.2 pg (27.0-32.0); Mean Corpuscular Volume 92.2 fL (80-94); Mean Platelet Vol. 9.1 fl (6.2-12.0); Monocyte# 0.97 X10^3/uL; Monocyte% 7.1 % (0-10); NRBC Flagged by Analyzer 0 % (0-5); Neutrophil # 10.14 X10^3/uL (2.7-7.7); Neutrophil % 74.3 % (47-70); Platelet Count 379 K/mm3 (150-450); RBC Distribution Width SD 41.1 fl (35.1-43.9); Red Blood Count 4.87 M/mm3 (4.6-6.2); White Blood Count 13.7 K/mm3 (4.4-11.0)
[2021-09-20 07:29] LABS: Bacteria 0 SEEN /hpf (None Seen); Mucous, Urine 0 SEEN /hpf (<or=2+)
[2021-09-20 07:32] LABS: Glucose, Dipstick Normal (Normal); Ketone-Dipstick Negative (Negative); Leukocyte Esterase-Dipstick 25 /ul (Negative); Nitrite-Dipstick Negative (Negative); Occult Blood-Urine 250 /ul (Negative); Protein-Dipstick 30 mg/dl (Negative); Urine Bilirubin Dipstick Negative (Negative); Urine Urobilinogen 1 mg/dl (Normal)
[2021-09-20 07:39] LABS: Anion Gap 7 (5-15); BUN 10 mg/dL (7-18); BUN/Creat Ratio 10.4 RATIO (10-20); Calcium,Total 8.7 mg/dL (8.5-10.1); Chloride 109 mmol/L (98-107); Creatinine, Serum 0.96 mg/dL (0.70-1.30); EST Glomerular Filtration Rate 97 mL/min (>60); Est Glom Filt Rate - Afr Amer 117 mL/min (>60); Glucose 103 mg/dL (74-106); Potassium 3.7 mmol/L (3.5-5.1); Sodium Level 144 mmol/L (136-145)
[2021-09-20 07:45] LABS: Color, Urine Yellow (Yellow); Urine Clarity Clear (Clear)
[2021-09-20 07:46] LABS: Red Blood Cells-Urine 5-10 SEEN /hpf (0-5); Squamous Epithelial Cells - UA 0-5 SEEN /hpf (0-5); White Blood Cells 0-5 SEEN /hpf (0-5)
[2021-09-20 09:34] VITALS: PULSE 75; RESP 16; O2SAT 98
== END 2021-09-20 09:36 | disposition home or self-care (01) ==
PROVIDERS: Emergency Provider Emergency Medicine; PCP Internal Medicine; Visit Provider Emergency Medicine
DX: N20.0 Calculus of kidney (principal); F17.210 Nicotine dependence, cigarettes, uncomplicated
CPT/HCPCS: 80048; 81001; 85025; 96361; 96374; 96375; 99283; J2405

== ENCOUNTER 2021-09-22 15:40 | Outpatient (CLI) | payer BC, SELFPAY ==
--- NOTE | 2021-09-22 | CALC_PTH ---
PATIENT: JUAN SAUCEDO LOC: [facility] U#:[id number] AGE/SX: 31/M ROOM: RE09/22/[address]: Dr. Marek Mobley MD : 1990 BED: DIS: 09/22/2021 SPEC #: [id number] RECD: 09/22/21 15:25 STATUS: MADELIN HUTCHINSON #: [id number] SALOMÓN: 09/22/21 00:[address]: Marek Mobley DEPT: SURGICAL PATHOLOGY RECD BY: Jose Miguel Núñez ENTERED: 09/25/21 07:41 SP TYPE: Calculi OTHR DR: Dr. Lakshmi Lama MD [facility] Tissues: CALCULI Procedures: Surgery Specimen Level I HEADER OPERATION: Left ureteroscopy, stone extraction, retrograde pyelogram PRE-OP DIAGNOSIS: Calculus of ureter TISSUE SUBMITTED: Ureteral stone GROSS DIAGNOSIS Fragment of stone, clinically calculus of ureter. SJ:[email or web address] 09/26/2021 COMMENT If chemical analysis is requested on this specimen, please notify the laboratory. GROSS DESCRIPTION Received without fixative labeled with the patient's name and designated ureteral stone. The specimen consists of a fragment of keane-brown stone measuring 0.5 x 0.3 x 0.2 cm. The entire specimen is saved if stone analysis is requested. / RAMAKRISHNA:calixto 09/25/2021 CPT: 41421
== END 2021-09-22 23:59 | disposition short-term general hospital (02) ==
LOC: LABSPEC 15:41
PROVIDERS: PCP Internal Medicine; Visit Provider Urology
DX: N20.1 Calculus of ureter (principal)
CPT/HCPCS: 88300

== ENCOUNTER 2022-01-17 23:14 | Emergency (ER) | payer BC, SELFPAY ==
[2022-01-17 23:16] VITALS: PULSE 100; RESP 19; TEMP 36.7; O2SAT 99; BMI 23.6
[2022-01-17 23:19] VITALS: BP 174/102
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
[2022-01-17] MEDS: Diphth,Pertuss(Acell),Tet Vac 0.5 ML Vial IM (23:46)
[2022-01-17] MEDS: Ondansetron 4 MG/2 ML Vial IV (23:46)
[2022-01-17] MEDS: Morphine 4 MG/ML Syringe IV (23:47)
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
[2022-01-18] MEDS: HYDROmorphone 1 MG/ML Syringe IV (00:09)
[2022-01-18] MEDS: Lidocaine 2% /Epi 1:100 (20ml) 20 ML VIAL INFILT (01:42)
[2022-01-18] MEDS: oxyCODONE 5 MG Tablet 10 MG PO (01:42)
== END 2022-01-18 01:45 | disposition home or self-care (01) ==
PROVIDERS: Emergency Provider Emergency Medicine; PCP Internal Medicine; Visit Provider Emergency Medicine
DX: S01.81XA Laceration without foreign body of other part of head, initial encounter (principal); V19.9XXA Pedal cyclist (driver) (passenger) injured in unspecified traffic accident, initial encounter; F17.210 Nicotine dependence, cigarettes, uncomplicated; Z23 Encounter for immunization
CPT/HCPCS: 12013; 70450; 70486; 72125; 90471; 90715; 99283; J2405

== ENCOUNTER 2022-11-07 22:14 | Emergency (ER) | payer BC, SELFPAY ==
[2022-11-07 22:15] VITALS: BP 136/89; PULSE 84; RESP 16; TEMP 36.4; O2SAT 98
[2022-11-07 22:33] VITALS: BMI 23.8
[2022-11-07 23:01] LABS: Absolute Lymphocyte Count 2.92 X10^3/uL (0.83-4.51); Absolute Neutrophil Count 7.3 X10^3/uL (2.0-7.7); Basophil# 0.05 X10^3/uL; Basophil% 0.4 % (0-1); Eosinophil# 0.28 X10^3/uL; Eosinophils% 2.4 % (0-5); Hematocrit 46.2 % (40-54); Hemoglobin 15.8 g/dL (13.0-16.5); Lymphocyte # 2.92 X10^3/ul (0.83-4.51); Lymphocyte % 25.4 % (19-41); Mean Corp Hgb Conc 34.2 g/dL (32-36); Mean Corpuscular Hgb 31.5 pg (27.0-32.0); Mean Corpuscular Volume 92.2 fL (80-94); Mean Platelet Vol. 9.2 fl (6.2-12.0); Monocyte# 0.93 X10^3/uL; Monocyte% 8.1 % (0-10); NRBC Flagged by Analyzer 0 % (0-5); Neutrophil # 7.28 X10^3/uL (2.7-7.7); Neutrophil % 63.4 % (47-70); Platelet Count 424 K/mm3 (150-450); RBC Distribution Width CV 12.3 % (11.6-14.6); RBC Distribution Width SD 41.9 fl (35.1-43.9); Red Blood Count 5.01 M/mm3 (4.6-6.2); White Blood Count 11.5 K/mm3 (4.4-11.0)
[2022-11-07] MEDS: Meclizine HCl 25 MG Tablet PO (23:04)
[2022-11-07 23:08] VITALS: BP 137/91; BP 143/112; BP 143/99; PULSE 81
[2022-11-07 23:15] LABS: Anion Gap 6 (5-15); BUN 8 mg/dL (7-18); BUN/Creat Ratio 11.3 RATIO (10-20); Calcium,Total 8.9 mg/dL (8.5-10.1); Chloride 108 mmol/L (98-107); EST Glomerular Filtration Rate 137 mL/min (>60); Est Glom Filt Rate - Afr Amer 166 mL/min (>60); Glucose 98 mg/dL (74-106); Magnesium 2.3 mg/dL (1.6-2.6); Potassium 3.4 mmol/L (3.5-5.1); Sodium Level 140 mmol/L (136-145)
[2022-11-07] MEDS: 0.9% Normal Saline 1,000 ML 999 ML IV (23:31)
--- NOTE | 2022-11-08 00:57 | EDS_ITS ---
HPI History of Present Illness Chief Complaint: Dizziness Narrative Narrative: Patient is a 32-year-old male with past medical history of hypertension. He states over the past week he will have bouts of dizziness that he describes as more of a sense of motion with changes in position. He states that this evening he was in the shower and he began feeling dizzy. He states he got out of the shower and walked over to his bed but felt so dizzy that he had to lie down. He states that symptoms improved with rest persistent over the past week family was concerned and therefore he was sent to the hospital for evaluation. [facility] Medical History Dermatitis Effusion of elbow joint, right Face lacerations HTN (hypertension) Plantar warts Home Medications lisinopril 10 mg tablet 10 mg PO QDAY #30 tabs 02/02/22 [Rx Last Taken Unknown] meclizine 25 mg tablet 25 mg PO TID PRN dizziness #21 tabs 11/08/22 [Rx Last Taken Unknown] Allergy/AdvReac Type Severity Reaction Status Date / Time No Known Allergies Allergy Verified 11/07/22 22:17 Family History Father Alcoholism Mother Cancer cervical Seizures Sister Cancer cervical Thyroid disorder Grandfather Heart disease CVA (cerebral vascular accident) Surgical History History of appendectomy Social History Smoking Status: Current every day smoker tobacco type: cigarettes Tobacco: How many years used: 10 alcohol intake: current alcohol intake frequency: a few times a month substance use type: does not use what type of physical activity do you participate in: none ROS ROS ED Constitutional Constitutional ED: Denies chills or fever(s) Eyes Eyes: Denies change in vision ENT ENT ED: Denies ear pain or sore throat Cardiovascular Cardiovascular: Denies chest pain Respiratory/Chest Respiratory/Chest: Denies cough or dyspnea Gastrointestinal Gastrointestinal: Denies abdominal pain, diarrhea, nausea or vomiting Genitourinary Genitourinary ED: Denies dysuria Musculoskeletal Musculoskeletal: Denies myalgias Integumentary Denies rash Neurologic Neurologic: Reports other Details: Positive dizziness ; Denies headache(s) Hematologic/Lymphatic Hematologic/Lymphatic: Denies easy bleeding or easy bruising EXAM Physical Exam Const Vital Signs: 11/07/22 22:15 11/07/22 22:31 11/07/22 23:08 Temperature 97.6 F L Temperature Source Temporal Pulse Rate 84 Pulse Rate [Lying] 81 Pulse Rate [Sitting (for 1 minute prior to obtaining)] 81 Respiratory Rate 16 Respiratory Effort Normal Non-Labored Respiratory Pattern Normal Blood Pressure 136/89 H Blood Pressure [Lying] 137/91 H Blood Pressure [Sitting (for 1 minute prior to obtaining)] 143/99 H Blood Pressure [Standing (for 1 minute prior to obtaining)] 143/112 H Blood Pressure Mean 104 Blood Pressure Mean [Lying] 106 Blood Pressure Mean [Sitting (for 1 minute prior to obtaining)] 113 Blood Pressure Mean [Standing (for 1 minute prior to obtaining)] 122 Pulse Ox 98 Oxygen Delivery Method Room Air 11/08/22 01:07 Temperature Temperature Source Pulse Rate 69 Pulse Rate [Lying] Pulse Rate [Sitting (for 1 minute prior to obtaining)] Respiratory Rate 15 Respiratory Effort Respiratory Pattern Blood Pressure 131/89 H Blood Pressure [Lying] Blood Pressure [Sitting (for 1 minute prior to obtaining)] Blood Pressure [Standing (for 1 minute prior to obtaining)] Blood Pressure Mean Blood Pressure Mean [Lying] Blood Pressure Mean [Sitting (for 1 minute prior to obtaining)] Blood Pressure Mean [Standing (for 1 minute prior to obtaining)] Pulse Ox 99 Oxygen Delivery Method Positive well nourished and well developed General Appearance ED: well developed HEENT Reports TM's clear and moist mucous membranes Tympanic Membrane ED: Yes TM's clear Eyes PERRL and EOMs intact bilaterally Neck supple Resp normal respiratory effort and clear to auscultation bilaterally Cardio regular rate and regular rhythm GI normal to inspection, nondistended, normoactive bowel sounds, non-tender, non- distended and no masses Auscultation: normoactive bowel sounds Palpation: soft Extremity normal to inspection Neuro oriented x3 and CN's II-XII intact bilaterally Neuro Narrative: Cranial nerves II through XII are grossly intact there are no focal neurologic deficits. No pronator drift no dysmetria no truncal ataxia. NIH stroke scale score of 0. Patient does have slight horizontal nystagmus noted as well as positive Hallpike [place] exam on right. Sensorium / Orientation: alert Psych mental status grossly normal Skin no rashes or lesions noted MDM MDM MDM Narrative Medical decision making narrative: Patient presented to the ER with stable vitals and normal neurologic exam. His symptoms are reproducible with changes in head position or body position indicating peripheral vertigo. He also states that they resolved while he is at rest and therefore I felt no need for an emergent head CT as my concern for VPS or brainstem stroke is low. Basic blood work was obtained which shows no anemia or signs of acute kidney injury or electrolyte abnormality which could be the cause of his persistent dizziness. Orthostatic vital signs were also obtained and were negative. Patient was given 1 L of fluid as well as meclizine and on reevaluation reported feeling better and was able to walk to and from the bathroom with a steady gait. Therefore this time with resolution of symptoms with treatment and no clinically significant findings on exam or laboratory studies I do not feel there is need for further work-up and he is otherwise safe for discharge Lab Data Attestation: I reviewed the patient's lab results. Labs: Laboratory Results - last 24 hr 11/07/22 11/07/22 22:50 22:50 WBC 11.5 H RBC 5.01 Hgb 15.8 Hct 46.2 MCV 92.2 MCH 31.5 MCHC 34.2 RDW Std Deviation 41.9 RDW Coeff of Annalisa 12.3 Plt Count 424 MPV 9.2 Immature Gran % (Auto) 0.300 Neut % (Auto) 63.4 Lymph % (Auto) 25.4 Duc[place]ne % (Auto) 8.1 Eos % (Auto) 2.4 Baso % (Auto) 0.4 Absolute Neuts (auto) 7.3 Absolute Lymphs (auto) 2.92 Nucleated RBC % 0 Sodium 140 Potassium 3.4 L Chloride 108 H Carbon Dioxide 26.0 Anion Gap 6 BUN 8 Creatinine 0.70 Estim Creat Clear Calc 151.50 Est GFR (MDRD) Af Amer 166 Est GFR (MDRD) Non-Af 137 BUN/Creatinine Ratio 11.3 Glucose 98 Calcium 8.9 Magnesium 2.3 Discharge Plan Triage Chief Complaint: Dizziness ED Provider: Alin Fontenot Dx/Rx/DC Orders Clinical Impression: Peripheral vertigo, History of primary hypertension Instructions: Vestibular Rehab Therapy, ED BPV Vertigo Prescriptions: New meclizine 25 mg tablet 25 mg PO TID PRN (Reason: dizziness) Qty: 21 0RF No Action lisinopril 10 mg tablet 10 mg PO QDAY Qty: 30 11RF Stand Alone Forms: ED Work / School Excuse Primary Care Provider: Lakshmi Lama Referrals: Lakshmi Lama MD [Primary Care Provider] - Activity Restrictions/Additional Instructions: Please take the Antivert as directed for the next few days to help control any further dizzy symptoms and keep yourself well-hydrated. If you do not have symptom improvement over the next 5 to 7 days or symptoms worsen or you have any further concerns return for repeat evaluation Disposition Disposition: Home, Self Care Discharge Date/Time: 11/08/22 01:09
[2022-11-08 01:07] VITALS: BP 131/89; PULSE 69; RESP 15; O2SAT 99
== END 2022-11-08 01:09 | disposition home or self-care (01) ==
PROVIDERS: Emergency Provider Emergency Medicine; PCP Internal Medicine; Visit Provider Emergency Medicine
DX: H81.399 Other peripheral vertigo, unspecified ear (principal); F17.210 Nicotine dependence, cigarettes, uncomplicated; I10 Essential (primary) hypertension
CPT/HCPCS: 80048; 83735; 85025; 96360; 96361; 99284; J7030; A4216

== ENCOUNTER 2023-06-27 08:22 | Emergency (ER) | payer BC, SELFPAY ==
[2023-06-27 08:22] VITALS: BP 176/100; PULSE 98; RESP 16; TEMP 36.3; O2SAT 97; BMI 22.4
--- NOTE | 2023-06-27 08:32 | CT_ITS ---
EXAM: CT ABDOMEN AND PELVIS WITHOUT INTRAVENOUS CONTRAST CLINICAL INDICATION: Kidney Stone TECHNIQUE: Helically acquired images were obtained of the abdomen and pelvis without intravenous contrast. This CT exam was performed using one or more of the following dose reduction techniques: automated exposure control, adjustment of the mA and/or kV according to patient size, and/or use of iterative reconstruction technique. RADIATION DOSE: CTDIvol = 6.06 mGy, DLP = 310.61 mGy-cm COMPARISON: CT abdomen and pelvis without contrast 08/30/2021. FINDINGS: LOWER THORAX: Unremarkable. Lung bases are clear. No cardiomegaly. No significant pericardial effusion. ABDOMEN: LIVER: Unremarkable. Homogeneous. GALLBLADDER AND BILE DUCTS: Unremarkable. No calcified gallstones. No gallbladder distention or wall edema. No intra- or extrahepatic biliary ductal dilation. PANCREAS: Unremarkable. No focal cystic mass. SPLEEN: Unremarkable. Normal size without focal cystic or solid mass. ADRENALS: Unremarkable. No nodules. KIDNEYS AND URETERS: Mild right hydronephrosis and mild right hydroureter secondary to recently passed 4 mm stone in the right side of the urinary bladder. There are at least 3 tiny nonobstructing calculi in the right kidney ranging from 1 mm to millimeters in size. Interval improvement of left hydronephrosis. 4 mm nonobstructing stone in the left renal infundibulum is a new finding. At least 3 tiny nonobstructing calculi left kidney measuring 1 mm in size. Normal renal size and position. STOMACH AND BOWEL: Unremarkable. No stomach or bowel distention. No focal inflammatory change. PELVIS: APPENDIX: Normal. BLADDER: Unremarkable. REPRODUCTIVE: Unremarkable as visualized. No mass. ABDOMEN and PELVIS: INTRAPERITONEAL SPACE: Unremarkable. No ascites or other fluid collection. No free air. BONES/JOINTS: Unremarkable. No suspicious lytic or blastic abnormality. SOFT TISSUES: Unremarkable. No discrete abdominal or pelvic wall hernia. VASCULATURE: Unremarkable. Abdominal aorta is non-dilated. LYMPH NODES: Unremarkable. No enlarged lymph nodes. CT/Abdomen/Pelvis without Cont IMPRESSION: 1. Mild right hydronephrosis secondary to recently passed 4 mm stone in the right side of the posterior urinary bladder. 2. At least 3 tiny nonobstructing calculi in the right kidney ranging from 1 mm to 2 mm in size. 3. Interval improvement of left hydronephrosis. 4 mm nonobstructing stone in the left upper renal infundibulum is a new finding. At least 3 tiny nonobstructing calculi in the left kidney measuring 1 mm in size. 4. No other additional findings or changes. Electronically Signed: eJan Villalobos MD at 9:26 EDT ,
[2023-06-27] MEDS: Morphine 4 MG/ML Syringe IV (08:59)
[2023-06-27] MEDS: Ketorolac 30 MG/ML Syringe IV (08:59)
[2023-06-27] MEDS: Ondansetron 4 MG/2 ML Vial IV (09:01)
--- NOTE | 2023-06-27 09:13 | EX.ED.DYSGE1 ---
HPI History of Present Illness Chief Complaint: Flank Pain Informant: patient Narrative Narrative: 33-year-old male presenting to the department with the chief complaint of right flank pain. Patient states that he was at work approximately 30 minutes before arrival when he developed a sudden onset of stabbing right flank upper abdominal pain. He developed 1 episode of emesis. Denies any urinary symptoms or change in bowel habits. He denies any fevers. He has had prior appendectomy and surgery for kidney stones several years ago. No reported fever. No known gallbladder or pancreatic. [facility] Medical History Dermatitis Effusion of elbow joint, right Face lacerations HTN (hypertension) Kidney stones Plantar warts Home Medications lisinopril 10 mg tablet 10 mg PO QDAY #30 tabs 02/02/22 [Rx Last Taken Unknown] meclizine 25 mg tablet 25 mg PO TID PRN dizziness #21 tabs 11/08/22 [Rx Last Taken Unknown] cephalexin 500 mg capsule 500 mg PO Q12 #14 CAPSULES 06/27/23 [Rx Last Taken Unknown] oxycodone-acetaminophen 5 mg-325 mg tablet 1 tab PO Q6H PRN PRN Pain 3 days #10 TABLETS 06/27/23 [Rx Last Taken Unknown] Allergy/AdvReac Type Severity Reaction Status Date / Time No Known Allergies Allergy Verified 06/27/23 08:22 Family History Father Alcoholism Mother Cancer cervical Seizures Sister Cancer cervical Thyroid disorder Grandfather Heart disease CVA (cerebral vascular accident) Surgical History History of appendectomy Social History Smoking Status: Current every day smoker tobacco type: cigarettes Tobacco: How many years used: 10 alcohol intake: current alcohol intake frequency: a few times a month substance use type: does not use what type of physical activity do you participate in: none ROS ROS ED Constitutional Constitutional ED: Denies chills or weight loss Eyes Eyes: Denies change in vision or diplopia ENT ENT ED: Denies ear pain, rhinorrhea or sore throat Cardiovascular Cardiovascular: Denies chest pain, orthopnea, palpitations or racing heartbeat Respiratory/Chest Respiratory/Chest: Denies cough, dyspnea or orthopnea Gastrointestinal Gastrointestinal: Reports abdominal pain, nausea and vomiting; Denies diarrhea Genitourinary Genitourinary ED: Denies dysuria, hematuria or urinary frequency Musculoskeletal Musculoskeletal: Reports back pain; Denies arthralgias, myalgias or neck pain Integumentary Denies abscess or rash Neurologic Neurologic: Denies headache(s) or weakness Psychiatric Psychiatric: Denies anxiety, depression, suicidal ideation or suicidal thoughts Endocrine Endocrinology: Denies polydipsia, polyphagia or polyuria Allergic/Immunologic Allergic/Immunologic ED: Denies mouth swelling, tongue swelling or urticaria EXAM Physical Exam Narrative Exam Narrative: Appears uncomfortable in the bed. He is writhing. Const Vital Signs: 06/27/23 08:22 Temperature 97.4 F L Temperature Source Temporal Pulse Rate 98 Respiratory Rate 16 Blood Pressure 176/100 H Blood Pressure Mean 125 Pulse Ox 97 Oxygen Delivery Method Room Air Positive well nourished and well developed General Appearance ED: well developed HEENT Reports normocephalic, head/scalp atraumatic and moist mucous membranes Eyes PERRL and EOMs intact bilaterally Neck no lymphadenopathy, supple and no JVD Resp normal respiratory effort and clear to auscultation bilaterally Cardio regular rate, regular rhythm and no murmurs GI Auscultation: normoactive bowel sounds Palpation: soft and tender epigastric and RUQ; Negative for guarding or rebound tenderness present Back/Spine no CVA tenderness and normal ROM Extremity normal to inspection General Extremety ED: Negative for edema General Extremity: Negative for edema Neuro oriented x3 and CN's II-XII intact bilaterally Sensorium / Orientation: alert Motor Exam: strength 5/5 throughout Psych mental status grossly normal Mood & Affect: Negative for depressed or tearful Skin no rashes or lesions noted and no wounds MDM MDM MDM Narrative Medical decision making narrative: Patient received Toradol morphine and Zofran. Repeat examination finds him to be significantly improved and resting comfortably. White count is normal at 9.1. Creatinine 0.84. Liver lipase normal. CT of the abdomen pelvis was obtained without contrast. This demonstrates a kidney stone in the bladder measuring approximately 4mm. There are stones bilaterally in the kidneys that appear nonobstructing. There is some hydronephroureter associated with a recently passed stone. Urinalysis obtained shows 2+ bacteria, positive nitrates, positive leukocyte esterase, and 10-25 white blood cells. Urine culture will be sent. He will be started on Keflex. At this point patient be discharged home. He was advised on the above findings as well as return instructions/follow-up. Lab Data Attestation: I reviewed the patient's lab results. Labs: Laboratory Results - last 24 hr 06/27/23 06/27/23 09:05 09:45 WBC 9.1 RBC 4.86 Hgb 15.9 Hct 46.0 MCV 94.7 H MCH 32.7 H MCHC 34.6 RDW Std Deviation 43.3 RDW Coeff of Annalisa 12.4 Plt Count 415 MPV 9.2 Immature Gran % (Auto) 0.600 Neut % (Auto) 66.4 Lymph % (Auto) 22.4 [place] % (Auto) 7.7 Eos % (Auto) 2.5 Baso % (Auto) 0.4 Absolute Neuts (auto) 6.0 Absolute Lymphs (auto) 2.03 Nucleated RBC % 0 Sodium 142 Potassium 3.9 Chloride 110 H Carbon Dioxide 28.0 Anion Gap 4 L BUN 8 Creatinine 0.84 Estim Creat Clear Calc 121.98 Est GFR (MDRD) Af Amer 135 Est GFR (MDRD) Non-Af 111 BUN/Creatinine Ratio 9.5 L Glucose 101 Calcium 9.0 Total Bilirubin 0.30 Direct Bilirubin 0.11 AST 15 ALT 25 Alkaline Phosphatase 74 Total Protein 6.9 Albumin 3.5 Globulin 3.4 Lipase 31 Urine Color Brown Urine Clarity Cloudy Urine pH 5.0 Ur Specific Eagan 1.025 Urine Protein 30 H Urine Glucose (UA) Normal Urine Ketones 5 H Urine Occult Blood 250 H Urine Nitrite Positive H Urine Bilirubin 1 H Urine Urobilinogen 1 H Ur Leukocyte Esterase 25 H Urine RBC > 100 SEEN Urine WBC 10-25 SEEN Ur Squamous Epith Cells 0 SEEN Amorphous Sediment 2+ Urine Bacteria 2+ Urine Mucus 0 SEEN Radiography Diagnostic Testing: Clinical Impression(s) from Imaging Studies Abdomen/Pelvis CT 06/27/23 08:32 IMPRESSION: 1. Mild right hydronephrosis secondary to recently passed 4 mm stone in the right side of the posterior urinary bladder. 2. At least 3 tiny nonobstructing calculi in the right kidney ranging from 1 mm to 2 mm in size. 3. Interval improvement of left hydronephrosis. 4 mm nonobstructing stone in the left upper renal infundibulum is a new finding. At least 3 tiny nonobstructing calculi in the left kidney measuring 1 mm in size. 4. No other additional findings or changes. Electronically Signed: Jean Villalobos MD at 9:26 EDT Reading Location ID and State: [facility] / [place] , Service support , Discharge Plan Triage Chief Complaint: Flank Pain ED Provider: Gonsalo Hallman Dx/Rx/DC Orders Clinical Impression: Renal colic, Ureterolithiasis, Vomiting, Acute UTI Instructions: ED Kidney Stone, Passed, ED Kidney Stone w/ Colic Prescriptions: New oxycodone-acetaminophen [oxycodone-acetaminophen] 5-325 mg tablet 1 tab PO Q6H PRN PRN (Reason: Pain) 3 Days Qty: 10 0RF cephalexin [cephalexin] 500 mg capsule 500 mg PO Q12 Qty: 14 0RF No Action lisinopril 10 mg tablet 10 mg PO QDAY Qty: 30 11RF meclizine 25 mg tablet 25 mg PO TID PRN (Reason: dizziness) Qty: 21 0RF Primary Care Provider: Lakshmi Lama Referrals: Lakshmi Lama MD [Primary Care Provider] - As Needed Disposition Disposition: Home, Self Care
[2023-06-27 09:15] LABS: Absolute Lymphocyte Count 2.03 X10^3/uL (0.83-4.51); Basophil# 0.04 X10^3/uL; Basophil% 0.4 % (0-1); Eosinophil# 0.23 X10^3/uL; Eosinophils% 2.5 % (0-5); Hemoglobin 15.9 g/dL (13.0-16.5); Lymphocyte # 2.03 X10^3/ul (0.83-4.51); Lymphocyte % 22.4 % (19-41); Mean Corp Hgb Conc 34.6 g/dL (32-36); Mean Corpuscular Hgb 32.7 pg (27.0-32.0); Mean Corpuscular Volume 94.7 fL (80-94); Mean Platelet Vol. 9.2 fl (6.2-12.0); Monocyte% 7.7 % (0-10); NRBC Flagged by Analyzer 0 % (0-5); Neutrophil # 6.01 X10^3/uL (2.7-7.7); Neutrophil % 66.4 % (47-70); Platelet Count 415 K/mm3 (150-450); RBC Distribution Width CV 12.4 % (11.6-14.6); RBC Distribution Width SD 43.3 fl (35.1-43.9); Red Blood Count 4.86 M/mm3 (4.6-6.2); White Blood Count 9.1 K/mm3 (4.4-11.0)
[2023-06-27 09:28] LABS: Anion Gap 4 (5-15); BUN 8 mg/dL (7-18); BUN/Creat Ratio 9.5 RATIO (10-20); Chloride 110 mmol/L (98-107); Creatinine, Serum 0.84 mg/dL (0.70-1.30); EST Glomerular Filtration Rate 111 mL/min (>60); Est Glom Filt Rate - Afr Amer 135 mL/min (>60); Estimated Creatinine Clearance 121.98 ml/min; Glucose 101 mg/dL (74-106); Lipase 31 U/L (13-75); Potassium 3.9 mmol/L (3.5-5.1); Sodium Level 142 mmol/L (136-145)
[2023-06-27 09:33] LABS: AST(SGOT) 15 U/L (15-37); Alanine Aminotransfer ALT/SGPT 25 U/L (16-61); Albumin, Serum 3.5 g/dL (3.2-5.0); Alkaline Phosphatase 74 U/L (45-117); Bilirubin, Direct 0.11 mg/dL (0.00-0.30); Globulin 3.4 g/dL (2.2-4.2); Protein, Total 6.9 g/dL (6.4-8.2)
[2023-06-27 10:01] LABS: Mucous, Urine 0 SEEN /hpf (<or=2+); Squamous Epithelial Cells - UA 0 SEEN /hpf (0-5)
[2023-06-27 10:12] LABS: Color, Urine Brown (Yellow); Glucose, Dipstick Normal (Normal); Ketone-Dipstick 5 mg/dl (Negative); Leukocyte Esterase-Dipstick 25 /ul (Negative); Nitrite-Dipstick Positive (Negative); Occult Blood-Urine 250 /ul (Negative); Protein-Dipstick 30 mg/dl (Negative); Specific Gravity, Urine 1.025 (1.002-1.030); Urine Clarity Cloudy (Clear); Urine Urobilinogen 1 mg/dl (Normal)
[2023-06-27 10:16] LABS: Urine Bilirubin Dipstick 1 mg/dL (Negative)
[2023-06-27 10:35] LABS: Amorphous Sediment 2+; Bacteria 2+ /hpf (None Seen); Red Blood Cells-Urine > 100 SEEN /hpf (0-5); White Blood Cells 10-25 SEEN /hpf (0-5)
[2023-06-27 11:08] VITALS: BP 134/78; PULSE 78; RESP 16; O2SAT 98
== END 2023-06-27 11:09 | disposition home or self-care (01) ==
LOC: ED 10:59
PROVIDERS: Emergency Provider Emergency Medicine; PCP Internal Medicine; Visit Provider Emergency Medicine
DX: N13.6 Pyonephrosis (principal); I10 Essential (primary) hypertension; F17.210 Nicotine dependence, cigarettes, uncomplicated; R11.10 Vomiting, unspecified; N23 Unspecified renal colic; Z87.442 Personal history of urinary calculi
CPT/HCPCS: 74176; 80048; 80076; 81001; 83690; 85025; 87086; 96374; 96375; 99283; J7030; J2405

== ENCOUNTER 2023-12-15 21:06 | Emergency (ER) | payer BC, SELFPAY ==
[2023-12-15 21:06] VITALS: BP 145/89; PULSE 105; RESP 20; TEMP 36.1; O2SAT 98
--- NOTE | 2023-12-15 21:27 | ED.RN ---
CERVICAL COLLAR APPLIED ON PATIENT AFTER TRIAGE
--- NOTE | 2023-12-15 22:39 | CT_ITS ---
INDICATION: injury EXAMINATION: CT CERVICAL SPINE - CT Spine Cervical W/O Contrast Injection TECHNIQUE: Helically acquired images were obtained of the cervical spine. 2D reformatted images were reviewed. A radiation dose optimization technique was used for this scan. IV Contrast dosage and agent: None. RADIATION DOSAGE (If Supplied By Facility): CTDIvol = ( 23.23 ) mGy, DLP = ( 2465.88 ) mGycm COMPARISON: Cervical spine 01/17/2022 FINDINGS: ALIGNMENT: No subluxation. Straightening of the normal curvature. MINERALIZATION: Normal. VERTEBRAL BODIES: No fracture or acute abnormality. DISC SPACES: Unremarkable. POSTERIOR ELEMENTS: Unremarkable. SPINAL CANAL: Maintained. PARASPINAL SOFT TISSUES: Unremarkable. OTHER: None. CT/Spine Cervical without Contras IMPRESSION: No evidence of fracture or subluxation. Straightening of the normal curve may be due to position or muscle spasm. Electronically Signed: Claudia Ortiz MD at 23:36 EDT ,
--- NOTE | 2023-12-15 22:39 | CT_ITS ---
INDICATION: injury EXAMINATION: CT FACIAL BONES - CT Maxillofacial W/O Contrast Injection TECHNIQUE: Helically acquired images were obtained of the facial bones. A radiation dose optimization technique was used for this scan. IV Contrast dosage and agent: None. RADIATION DOSAGE (If Supplied By Facility): CTDIvol = ( 29.38 ) mGy, DLP = ( 2465.88 ) mGycm COMPARISON: CT Facial Bones 01/17/2022 FINDINGS: ORBITS: No fracture demonstrated. Globes appear intact. No retrobulbar hematoma. NASAL BONES: Unremarkable. NASOETHMOID COMPLEX: Unremarkable. ZYGOMATIC ARCHES: Unremarkable. MAXILLAE: Unremarkable. PTERYGOID PLATES: Unremarkable. MANDIBLE: No fracture demonstrated. No dislocation at the temporomandibular joints. SINUSES: Clear. SOFT TISSUES: Soft tissue swelling in the frontal/supraorbital scalp. OTHER: None. CT/Sinus/Facial Bone IMPRESSION: No evidence of fracture. Electronically Signed: Claudia Ortiz MD at 23:48 EDT ,
--- NOTE | 2023-12-15 22:39 | CT_ITS ---
INDICATION: head injury EXAMINATION: CT BRAIN - CT Head or Brain W/O Contrast Injection TECHNIQUE: Multiple axial images were obtained of the head without intravenous contrast. A radiation dose optimization technique was used for this scan. IV Contrast dosage and agent: None. RADIATION DOSAGE (If Supplied By Facility): CTDIvol = ( 44.99 ) mGy, DLP = ( 2465.88 ) mGycm COMPARISON: CT head 01/17/2022 FINDINGS: BRAIN: No acute bleed. No edema. Loay-white matter differentiation is maintained. VENTRICLES AND SULCI: Not dilated. EXTRA-AXIAL: No hemorrhage, fluid collection, or mass. CALVARIUM / SKULL BASE: Unremarkable. FACE/SINUSES: Unremarkable. SOFT TISSUES: Unremarkable. CT/Brain/Head without Contrast IMPRESSION: Scalp contusion. No evidence of acute intracranial injury. Electronically Signed: Claudia Ortiz MD at 23:22 EDT ,
[2023-12-15] MEDS: Amox/Clavulanate 875 MG Tablet PO (22:56)
[2023-12-15] MEDS: Ondansetron ODT 4 MG Tablet PO (22:56)
[2023-12-15 23:00] VITALS: BP 143/92; PULSE 70; RESP 18; O2SAT 99
[2023-12-15] MEDS: Morphine 4 MG/ML Syringe 8 MG IM (23:02)
[2023-12-15] MEDS: Diphth,Pertuss(Acell),Tet Vac 0.5 ML Vial IM (23:03)
[2023-12-16 01:00] VITALS: BP 131/83; PULSE 79; RESP 18; O2SAT 98
[2023-12-16] MEDS: Oxycodone/Apap 5/325 Tablet PO (02:30)
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
[2023-12-16 04:40] VITALS: BP 134/72; PULSE 72; RESP 18; TEMP 36.6; O2SAT 96
== END 2023-12-16 04:41 | disposition home or self-care (01) ==
PROVIDERS: Emergency Provider Emergency Medicine; PCP Internal Medicine; Visit Provider Emergency Medicine
DX: S01.81XA Laceration without foreign body of other part of head, initial encounter (principal); F17.210 Nicotine dependence, cigarettes, uncomplicated; I10 Essential (primary) hypertension; V89.0XXA Person injured in unspecified motor-vehicle accident, nontraffic, initial encounter; Z90.49 Acquired absence of other specified parts of digestive tract; S09.90XA Unspecified injury of head, initial encounter
CPT/HCPCS: 12011; 70450; 70486; 72125; 90715; 96372; 99283